=== PATIENT | female | born 1995 | race Caucasian/White ===

== ENCOUNTER 2021-01-24 14:08 | Emergency (ER) | payer BC ==
[~2021-01-24] VITALS: Ht 165.1 cm; Wt 65.9 kg
[2021-01-24 14:37] VITALS: TEMP 97.7
[2021-01-24] MEDS ORDERED: NEXPLANON68 MG ID (14:43)
[2021-01-24 14:51] LABS: COLLECTION METHOD CLEAN CATCH
[2021-01-24 14:56] LABS: MUCOUS Present /lpf; PH 6 (5-8); URINE APPEARANCE Hazy; URINE BACTERIA None Seen /hpf; URINE BILIRUBIN Negative (NEGATIVE); URINE BLOOD Negative (NEGATIVE); URINE COLOR Yellow; URINE GLUCOSE Negative (NEGATIVE); URINE KETONE Trace (NEGATIVE); URINE LEUKOCYTE ESTERASE Negative (NEGATIVE); URINE NITRATE Negative (NEGATIVE); URINE PROTEIN(semi-quant) Negative (NEGATIVE); URINE UROBILINOGEN Negative (NEGATIVE)
[2021-01-24 15:56] LABS: BASO # 0.1 (0.0-0.2); BASO % 0.6 % (0.0-2.0); GRAN # 8.8 (1.4-6.5); GRAN % 78.5 % (42.2-75.2); HEMATOCRIT 38.2 % (37.0-47.0); HEMOGLOBIN 12.6 g/dl (12.5-16.0); LYMPH # 1.6 (1.2-3.4); LYMPH % 14.5 % (20.0-51.0); MEAN CELL VOLUME 88 fl (80.0-100.0); MEAN CORPUSCULAR HEMOGLOBIN 29 pg (27.0-31.0); MEAN CORPUSCULAR HGB CONC 33 g/dl (33.0-37.0); MEAN PLATELET VOLUME 8.4 fl (7.4-10.4); MONO # 0.7 (0.1-0.6); PLATELET COUNT 285 K/mm3 (130-400); RED BLOOD COUNT 4.33 M/mm3 (4.10-5.30); REDCELL DISTRIBUTION WIDTH-CV 13.1 % (11.5-14.5)
[2021-01-24 16:16] LABS: ALBUMIN 4.1 gm/dL (3.5-5.0); BILIRUBIN,TOTAL 0.6 mg/dL (0.0-1.0); CALCIUM 8.9 mg/dL (8.4-10.2); CREATININE, serum 0.73 (0.52-1.25); POTASSIUM 4.3 mmol/L (3.4-5.0); TOTAL PROTEIN 7.1 gm/dL (6.4-8.2)
[2021-01-24 16:22] LABS: C-REACTIVE PROTEIN 0.5 mg/dL (0.0-0.9)
[2021-01-24] MEDS ORDERED: NORCO 325 MG-51 TAB PO (19:14)
[2021-01-24 19:23] VITALS: BP 135/76; PULSE 66
== END 2021-01-24 19:28 | disposition home or self-care (01) ==
LOC: COL.ER 14:08
PROVIDERS: Nurse Practitioner
DX: N83.201 Unspecified ovarian cyst, right side (principal)
CPT/HCPCS: J1170; J2405; J7030; Q9967

== ENCOUNTER 2021-08-22 17:31 | Emergency (ER) | payer BC ==
[~2021-08-22] VITALS: Ht 165.1 cm; Wt 68.2 kg
[~2021-08-22 17:31] MED LIST: NEXPLANON68 MG ID; NORCO 325 MG-51 TAB PO
[2021-08-22 18:00] VITALS: TEMP 97.2
[2021-08-22 20:47] LABS: BASO # 0.1 K/mm3 (0.0-0.2); BASO % 0.5 % (0.0-2.0); EOS % 0.2 % (0.0-4.0); GRAN # 8.1 K/mm3 (1.4-6.5); GRAN % 67.9 % (42.2-75.2); HEMATOCRIT 38.4 % (37.0-47.0); HEMOGLOBIN 12.8 g/dl (12.5-16.0); LYMPH # 2.7 K/mm3 (1.2-3.4); LYMPH % 22.7 % (20.0-51.0); MEAN CELL VOLUME 89 fl (80.0-100.0); MEAN CORPUSCULAR HEMOGLOBIN 30 pg (27-31); MEAN CORPUSCULAR HGB CONC 33 g/dl (33.0-37.0); MEAN PLATELET VOLUME 8.7 fl (7.4-10.4); MONO % 8.4 % (1.7-9.3); PLATELET COUNT 364 K/mm3 (130-400)
[2021-08-22 21:00] LABS: ALBUMIN 4.1 gm/dL (3.5-5.0); BILIRUBIN,TOTAL 0.9 mg/dL (0.2-1.2); CREATININE, serum 0.8 mg/dL (0.57-1.11); POTASSIUM 4.5 mmol/L (3.5-4.5); TOTAL PROTEIN 7.4 gm/dL (6.2-8.1)
[2021-08-22 21:35] VITALS: BP 112/71; PULSE 100
[2021-08-23] MEDS ORDERED: NORCO 325 MG-51 TAB PO (12:11)
== END 2021-08-22 21:35 | disposition home or self-care (01) ==
LOC: COL.ER 17:31
PROVIDERS: Physician Assistant
DX: A04.8 Other specified bacterial intestinal infections (principal); K25.9 Gastric ulcer, unspecified as acute or chronic, without hemorrhage or perforation
CPT/HCPCS: C9113; J7030

== ENCOUNTER 2021-08-23 08:36 | Emergency (ER) | payer BC ==
[~2021-08-23] VITALS: Ht 165.1 cm; Wt 68.2 kg
[2021-08-23 08:47] VITALS: TEMP 98.7
[2021-08-23] MEDS ORDERED: NORCO 325 MG-51 TAB PO (12:11)
[2021-08-23 15:42] VITALS: BP 121/72; PULSE 72
== END 2021-08-23 15:42 | disposition home or self-care (01) ==
LOC: COL.ER 08:36
DX: K29.70 Gastritis, unspecified, without bleeding (principal); Z32.02 Encounter for pregnancy test, result negative
CPT/HCPCS: C9113; J2270; J2405; J7030; Q9967